=== PATIENT | female | born 1950 | race Asian ===

== ENCOUNTER → 2019-03-31 | Outpatient (CLI) | payer OTHER ==
[~2019-03-31] MED LIST: ALBU90OI INH; Amlodipine Besy10 MG PO; CALCAVITD PO; CIPR500 PO; FLONASE ALLERG9.9 ML; Glucophage1000 MG PO; HTN MEDS; HYDCHL25 PO; LISI20 PO; LOSA50 PO; METF500 PO; Multiple Vitam1 EAC1 PO; NITR100CA PO; PHENA200 PO; POTA10T PO; VITAMIN D3400 UNIT PO; [UNRECOGNIZED DRUG - REMARK]
[2019-04-01 14:20] LABS: Stool Occult Bld Immuno 1 Negative (NEGATIVE)
== END ==
LOC: LAB 13:50 → LAB SHORT 13:50
PROVIDERS: Nurse Practitioner Family
DX: Z12.11 Encounter for screening for malignant neoplasm of colon (principal)
CPT/HCPCS: 82274

== ENCOUNTER 2020-02-05 02:16 | Observation (INO) | payer OTHER ==
[~2020-02-05] VITALS: Ht 142.2 cm; Wt 69.0 kg
[2020-02-05] MEDS ORDERED: GLUCOPHAGE1000 MG PO (02:39)
[2020-02-05 02:50] LABS: BASOPHILS ABSOLUTE AUTO 0.03 K/mm3 (0.00-0.23); BASOPHILS PERCENT AUTO 1 % (0-2); EOSINOPHILS ABSOLUTE AUTO 0.09 K/mm3 (0.00-0.68); EOSINOPHILS PERCENT AUTO 2 % (0-6); Hematocrit 37.4 % (33.0-51.0); Hemoglobin 12.3 g/dL (11.5-16.0); IMMATURE GRAN ABSOLUTE AUTO 0.01 K/mm3 (0.00-0.10); IMMATURE GRAN PERCENT AUTO 0 % (0-1); LYMPHOCYTES ABSOLUTE AUTO 1.61 K/mm3 (0.84-5.20); LYMPHOCYTES PERCENT AUTO 29 % (21-46); MONOCYTES ABSOLUTE AUTO 0.66 K/mm3 (0.16-1.47); MONOCYTES PERCENT AUTO 12 % (4-13); Mean Corpuscular HGB Conc 32.9 g/dL (31.5-36.5); Mean Corpuscular Volume 94 fL (80-100); Mean Platelet Volume 9.9 fL (9.1-12.4); NEUTROPHILS ABSOLUTE AUTO 3.25 K/mm3 (1.96-9.15); NEUTROPHILS PERCENT AUTO 58 % (41-73); Platelet Count 159 K/mm3 (150-400); RDW Coefficient Variation 13.2 % (11.7-14.2); RDW Standard Deviation 45.5 fL (35.1-46.3); Red Blood Cell Count 3.97 M/mm3 (3.80-5.20); White Blood Cell Count 5.65 K/mm3 (4.00-11.30)
[2020-02-05 03:11] LABS: Alanine Aminotransfer (ALT/SGP 29 U/L (12-78); Albumin, Blood 3.6 g/dL (3.4-5.0); Albumin/Globulin Ratio 0.9 (0.8-1.8); Alk Phos 86 U/L (50-136); Anion Gap 12 mmol/L (6-16); Aspartate Aminotrans (AST/SGOT 29 U/L (12-37); Bilirubin, Total 0.5 mg/dL (0.1-1.0); Blood Urea Nitrogen 11 mg/dL (8-24); Bun/Creatinine Ratio 13.1 (12.0-20.0); CO2, Blood 25 mmol/L (21-32); Calcium, Blood 9.1 mg/dL (8.5-10.1); Chloride, Blood 103 mmol/L (98-108); Creatinine, Blood 0.84 mg/dL (0.40-1.00); Globulin, Blood 4.2 g/dL (2.2-4.0); Glomerular Filtration Rate >60 (60-); Glucose, Blood 199 mg/dL (70-99); Potassium, Blood 2.9 mmol/L (3.5-5.5); Sodium, Blood 140 mmol/L (136-145); Total Protein, Blood 7.8 g/dL (6.4-8.2)
--- NOTE | 2020-02-05 06:48 | NUR ---
SHIFT SUMMARY PT ARRIVED APPROXIMATELY 0545; PT SELF TRANSFERED TO BED; A&O X 4; VSS; NSR NOTED ON TELE W/HR 80; DENIES CHEST PAIN; DENIES SOB; O2 SATS >93 ON RA; LUNG SOUNDS CLEAR; PT STATES SHE FELL DOWN A HILL AT HOME SEVERAL DAYS AGO, SEVERAL BRUISES NOTED ON LOWER EXTREMITIES AND LG SCAB ON L ELBOW; POTASSIUM GTT IN 18G RAC; PT STATES SHE TAKES METFORMIN TO CONTROL DM2; PT EDUCATED ON SAFETY AND ORIENTED TO UNIT; PT EXPRESSES UNDERSTANDING; CALL LIGHT IN REACH; BED IN LOWEST POSITION; WILL MONITOR CLOSELY UNTIL HAND OFF TO DAY SHIFT RN.
--- NOTE | 2020-02-05 08:02 | NUR ---
PT LAYING IN BED AWAKE A/OX3, PLEASANT AND COOPERATIVE WITH CARE, FOLLOWS COMMANDS, DENIES PAIN, SOB OR DIZZINESS, LUNGS ARE CLEAR T/O, RESP EVEN AND UNLABORED, NO COUGH NOTED, HRR, TELE IN PLACE RUNNING SR IN THE 70'S PER MONTIOR, SEE STRIP, NO EDEMA NOTED, PPP+2, CAP REFILL <3SEC, VS STABLE, AFEBRILE, IV TO RAC, SITE IS CLEAR AND PATENT, BTX4, ABD FLAT SOFT NONTENDER, VOIDS WITHOUT DIFF, SKIN C/W/D, MAEW, UP INDEP, HATTIE, CALL LIGHT IN REACH.
[2020-02-05 11:39] LABS: Troponin I 0.046 ng/mL (0.000-0.040)
--- NOTE | 2020-02-05 12:15 | NUR ---
PT SITTING ON THE SIDE OF THE BED EATING LUNCH, FAMILY IN ROOM WITH HER. NO COMPLAINTS OR NEEDS AT THIS TIME. CALL LIGHT IN REACH.
[2020-02-05] MEDS ORDERED: XARELTO20 MG PO (15:24)
[2020-02-05] MEDS ORDERED: METO25 PO (15:24)
[2020-02-05 16:24] LABS: Anion Gap 8 mmol/L (6-16); Blood Urea Nitrogen 9 mg/dL (8-24); Bun/Creatinine Ratio 14.2 (12.0-20.0); CO2, Blood 28 mmol/L (21-32); Calcium, Blood 9.4 mg/dL (8.5-10.1); Chloride, Blood 105 mmol/L (98-108); Creatinine, Blood 0.64 mg/dL (0.40-1.00); Glomerular Filtration Rate >60 (60-); Glucose, Blood 117 mg/dL (70-99); Potassium, Blood 3.3 mmol/L (3.5-5.5); Sodium, Blood 141 mmol/L (136-145)
--- NOTE | 2020-02-05 18:37 | NUR ---
PT HAS BEEN DISCHARGED TO HOME, WENT OVER INSTRUCTIONS WITH HER, HER MEDS WERE CALLED INTO [facility], IV REMOVED INTACT, SHE IS GETTING DRESSED, WILL LEAVE VIA WHEELCHAIR WITH SLEEP TECHNICIAN AND FAMILY WITH ALL HER BELONGINGS.
== END 2020-02-05 18:37 | disposition home or self-care (01) ==
LOC: ER 02:16 → PCU 02:17
PROVIDERS: Emergency Medicine; Hospitalist; ADMIT Internal Medicine
DX: I48.0 Paroxysmal atrial fibrillation (principal); R42 Dizziness and giddiness; E11.65 Type 2 diabetes mellitus with hyperglycemia; E66.9 Obesity, unspecified; I10 Essential (primary) hypertension; E87.6 Hypokalemia; I34.0 Nonrheumatic mitral (valve) insufficiency; Z79.899 Other long term (current) drug therapy; Z88.8 Allergy status to other drugs, medicaments and biological substances; Z79.84 Long term (current) use of oral hypoglycemic drugs; I48.92 Unspecified atrial flutter; Z68.34 Body mass index [BMI] 34.0-34.9, adult
CPT/HCPCS: 36415; 71045; 80048; 80053; 82550; 82947; 83735; 83880; 84484; 85025; 93005; 93010; 93306; 96365; 96366; 96367; 96375; 99285-25; A9270-GY; G0378; J3475; J3480; J7030

== ENCOUNTER 2020-04-08 13:16 | Observation (INO) | payer OTHER ==
[~2020-04-08] VITALS: Ht 142.2 cm; Wt 68.0 kg
[~2020-04-08 13:16] MED LIST changes: -CALCAVITD PO; +GLUCOPHAGE1000 MG PO; +METO25 PO; +OYSTERCAL-D 501 EACH PO; +XARELTO20 MG PO
[2020-04-08 14:03] LABS: BASOPHILS ABSOLUTE AUTO 0.03 K/mm3 (0.00-0.23); BASOPHILS PERCENT AUTO 1 % (0-2); EOSINOPHILS PERCENT AUTO 2 % (0-6); Hematocrit 40.7 % (33.0-51.0); Hemoglobin 13.6 g/dL (11.5-16.0); IMMATURE GRAN ABSOLUTE AUTO 0.01 K/mm3 (0.00-0.10); IMMATURE GRAN PERCENT AUTO 0 % (0-1); LYMPHOCYTES ABSOLUTE AUTO 1.36 K/mm3 (0.84-5.20); LYMPHOCYTES PERCENT AUTO 24 % (21-46); MONOCYTES ABSOLUTE AUTO 0.54 K/mm3 (0.16-1.47); MONOCYTES PERCENT AUTO 10 % (4-13); Mean Corpuscular HGB 30.2 pg (26.0-34.0); Mean Corpuscular HGB Conc 33.4 g/dL (31.5-36.5); Mean Corpuscular Volume 90 fL (80-100); Mean Platelet Volume 10.4 fL (9.1-12.4); NEUTROPHILS PERCENT AUTO 64 % (41-73); Platelet Count 148 K/mm3 (150-400); RDW Coefficient Variation 12.7 % (11.7-14.2); RDW Standard Deviation 41.7 fL (35.1-46.3); Red Blood Cell Count 4.51 M/mm3 (3.80-5.20); White Blood Cell Count 5.64 K/mm3 (4.00-11.30)
[2020-04-08] MEDS ORDERED: DILT180 PO (14:16)
[2020-04-08 14:25] LABS: Alanine Aminotransfer (ALT/SGP 37 U/L (12-78); Albumin, Blood 3.8 g/dL (3.4-5.0); Albumin/Globulin Ratio 0.9 (0.8-1.8); Alk Phos 98 U/L (50-136); Anion Gap 6 mmol/L (6-16); Aspartate Aminotrans (AST/SGOT 35 U/L (12-37); Bilirubin, Total 0.8 mg/dL (0.1-1.0); Blood Urea Nitrogen 14 mg/dL (8-24); Bun/Creatinine Ratio 19.3 (12.0-20.0); CO2, Blood 27 mmol/L (21-32); Calcium, Blood 9.8 mg/dL (8.5-10.1); Chloride, Blood 106 mmol/L (98-108); Creatinine, Blood 0.73 mg/dL (0.40-1.00); Globulin, Blood 4.4 g/dL (2.2-4.0); Glomerular Filtration Rate >60 (60-); Glucose, Blood 187 mg/dL (70-99); Potassium, Blood 3.5 mmol/L (3.5-5.5); Sodium, Blood 139 mmol/L (136-145); Total Protein, Blood 8.2 g/dL (6.4-8.2); Troponin I 0.059 ng/mL (0.000-0.040)
--- NOTE | 2020-04-08 17:40 | NUR ---
SHIFT SUMMARY PT ALERT AND ORIENTED. VS STABLE. HR NSR IN THE 70'S. BP STABLE. O2 SATS REMAIN ABOVE 90% ON RA. PT DENIES ANY DIZZINESS OR CP/PRESSURE. PT ABLE TO AMBUALTE TO BATHROOM WITH SBA NEEDED TO VOID. PT ORIENTED TO ROOM. SISTER AT BEDSIDE. WILL CONTINUE TO MONITOR AND REPORT TO ONCOMING RN. CALL LIGHT IN REACH.
[2020-04-09 03:36] LABS: BASOPHILS ABSOLUTE AUTO 0.03 K/mm3 (0.00-0.23); BASOPHILS PERCENT AUTO 1 % (0-2); EOSINOPHILS PERCENT AUTO 2 % (0-6); Hematocrit 36.2 % (33.0-51.0); Hemoglobin 11.8 g/dL (11.5-16.0); IMMATURE GRAN ABSOLUTE AUTO 0.01 K/mm3 (0.00-0.10); IMMATURE GRAN PERCENT AUTO 0 % (0-1); LYMPHOCYTES ABSOLUTE AUTO 1.28 K/mm3 (0.84-5.20); LYMPHOCYTES PERCENT AUTO 28 % (21-46); MONOCYTES ABSOLUTE AUTO 0.48 K/mm3 (0.16-1.47); MONOCYTES PERCENT AUTO 11 % (4-13); Mean Corpuscular HGB 29.8 pg (26.0-34.0); Mean Corpuscular HGB Conc 32.6 g/dL (31.5-36.5); Mean Corpuscular Volume 91 fL (80-100); Mean Platelet Volume 10.7 fL (9.1-12.4); NEUTROPHILS PERCENT AUTO 58 % (41-73); Platelet Count 130 K/mm3 (150-400); RDW Coefficient Variation 12.5 % (11.7-14.2); RDW Standard Deviation 41.9 fL (35.1-46.3); Red Blood Cell Count 3.96 M/mm3 (3.80-5.20)
[2020-04-09 03:54] LABS: Anion Gap 6 mmol/L (6-16); Blood Urea Nitrogen 12 mg/dL (8-24); Bun/Creatinine Ratio 16.9 (12.0-20.0); CO2, Blood 27 mmol/L (21-32); Calcium, Blood 9.2 mg/dL (8.5-10.1); Chloride, Blood 109 mmol/L (98-108); Creatinine, Blood 0.71 mg/dL (0.40-1.00); Glomerular Filtration Rate >60 (60-); Glucose, Blood 112 mg/dL (70-99); Potassium, Blood 3.6 mmol/L (3.5-5.5); Sodium, Blood 142 mmol/L (136-145); Troponin I 0.061 ng/mL (0.000-0.040)
--- NOTE | 2020-04-09 06:18 | NUR ---
END OF SHIFT SUMMARY PT AXO. PLEASANT AND COOPERATIVE. BEGINNING OF SHIFT, PT IN SR 60'S, PT THEN CONVERTED TO AFIB, HR 40'S AND STATED FEELING "TUNNEL VISION, DIZZY, LIGHTHEADED". PT SHORTLY CONVERTED TO SR W/OUT INTERVENTION, OTHER VSS DURING THIS EVENT. PT THEN CONTINUED TO CONVERT BACK AND FORTH INTO AFIB HR 30'S TO 40'S WITH 3-4 SECOND PAUSES TO SR HR 60'S TO 70'S. BP STABLE T/O. ZOLL PLACED AT BEDSIDE AND PADS PLACED ON PT ANTERIOR/POSTERIOR IN CASE OF SEVERE EVENT. VERITO Zaldivar NOTIFIED, ORDERS RECEIVED TO HAVE IV ATROPINE AT BEDSIDE IN CASE OF SEVERE EVNT .SINCE ZOLL WAS PLACED IN ROOM AND ATROPINE AT BEDSIDE, PT'S BRADYCARDIC EVENTS HAVE DECREASED SIGNIFICANTLY. TROPONIN HAS NOT TRENDED UP/DOWN. PT HAS DENIED CP THIS SHIFT. REMAINS ON RA. PT EXPRESSES WORRY REGARDING HEART CONDITION BUT HAS BEEN ABLE TO SLEEP THIS SHIFT. WILL CONTINUE TO MONITOR UNTIL SHIFT CHANGE.
--- NOTE | 2020-04-09 07:00 | NUR ---
XARELTO PHARMACIST KAMRYN CONTACTED THIS RN REGARDING XARELTO DOSAGE AT 0600 AND 2100. PHARMACIST AND RN QUESTIONING THIS DOSAGE OF 20MGS BID. KAMRYN PHARMACIST TO CLARIFT WITH ONCOMING PHARMACIST WHO VERIFIED ORDER AND WILL ADJUST NEEDED FOR DAY SHIFT RN.
--- NOTE | 2020-04-09 07:30 | NUR ---
ASSUMED CARE: PT RESTING QUIETLY AT THIS TIME. NSR ON TELE. ZOLL AT BEDSIDE BUT HAS NOT BEEN NEEDED. NO ACUTE NEEDS AT THIS TIME.
--- NOTE | 2020-04-09 18:55 | NUR ---
SHIFT SUMMARY: CARDIAC MEDS HELD TODAY PER ORDERS. NO CARDIAC EVENTS NOTED. PT ALERT AND ORIENTED, COOPERATIVE AND DENIES NEEDS OR CONCERNS. NSR ON TELE AT THIS TIME IN 60S
--- NOTE | 2020-04-10 06:04 | NUR ---
SHIFT SUMMARY PT HAD UNEVENTFUL NIGHT AND SLEPT MOST OF THE SHIFT. HEART MONITOR SHOWED NORMAL SINUS RHYTHM, NO EPISODES OF A-FIB OR PAUSES. HR IN THE 60-70'S AND BP HYPERTENSIVE AROUND 160 SYSTOLIC FALLING TO 130 IN THE AM. PT STATED HAVING NO SYMPTOMS OR DIZZINESS WHEN IN BED OR WHEN UP TO THE TOILET. PACER PADS ON PT T/O SHIFT WITH ZOLL AND ATROPINE STILL IN THE ROOM. PT STABLE AND UNREMARKABLE DURING SHIFT. WILL CONTINUE TO MONITOR UNTIL SHIFT CHANGE.
--- NOTE | 2020-04-10 07:30 | NUR ---
ASSUMED CARE: PT RESTING QUIETLY AT THIS TIME. HR NSR IN 60S AT PRESENT. NO ACUTE NEEDS OR CONCERNS.
--- NOTE | 2020-04-10 15:00 | NUR ---
CALL TO DR RIDER. OK'D PT FOR DC DUE TO HR IN 60S-70S WITH NO EVENTS THIS SHIFT. INSTRUCTIONS GIVE TO PT AND SISTER REGARDING F/U APPOINTMENTS AND MEDICATION MANAGEMENT. PRESCRIPTION CALLED TO NOEMÍ. DENIES FURTHER NEEDS OR CONCERNS. ESCORTED OUT VIA WHEELCHAIR BY HOSPTIAL STAFF.
== END 2020-04-10 14:50 | disposition home or self-care (01) ==
LOC: ER 13:16 → PCU 13:17
PROVIDERS: Physician Assistant; Student in an Organized Health Care Education/Training Program; ADMIT Hospitalist
DX: I48.0 Paroxysmal atrial fibrillation (principal); E11.9 Type 2 diabetes mellitus without complications; E66.9 Obesity, unspecified; R42 Dizziness and giddiness; I10 Essential (primary) hypertension; D69.6 Thrombocytopenia, unspecified; Z79.899 Other long term (current) drug therapy; R77.8 Other specified abnormalities of plasma proteins; Z88.8 Allergy status to other drugs, medicaments and biological substances; Z79.84 Long term (current) use of oral hypoglycemic drugs; Z79.02 Long term (current) use of antithrombotics/antiplatelets; Z79.01 Long term (current) use of anticoagulants; Z68.33 Body mass index [BMI] 33.0-33.9, adult
CPT/HCPCS: 36415; 71046; 80048; 80053; 82947; 84443; 84484; 85025; 93005; 93010; 99285-25; A9270-GY; G0378; J1815

== ENCOUNTER 2020-06-13 20:36 | Observation (INO) | payer OTHER ==
[~2020-06-13] VITALS: Ht 142.2 cm; Wt 65.9 kg
[~2020-06-13 20:36] MED LIST changes: +DILT180 PO
[2020-06-13 21:34] LABS: BASOPHILS ABSOLUTE AUTO 0.03 K/mm3 (0.00-0.23); BASOPHILS PERCENT AUTO 1 % (0-2); EOSINOPHILS PERCENT AUTO 2 % (0-6); Hematocrit 40.4 % (33.0-51.0); Hemoglobin 12.7 g/dL (11.5-16.0); IMMATURE GRAN ABSOLUTE AUTO 0.01 K/mm3 (0.00-0.10); IMMATURE GRAN PERCENT AUTO 0 % (0-1); LYMPHOCYTES ABSOLUTE AUTO 1.33 K/mm3 (0.84-5.20); LYMPHOCYTES PERCENT AUTO 23 % (21-46); MONOCYTES ABSOLUTE AUTO 0.63 K/mm3 (0.16-1.47); MONOCYTES PERCENT AUTO 11 % (4-13); Mean Corpuscular HGB 29.1 pg (26.0-34.0); Mean Corpuscular HGB Conc 31.4 g/dL (31.5-36.5); Mean Corpuscular Volume 92 fL (80-100); Mean Platelet Volume 10.9 fL (9.1-12.4); NEUTROPHILS PERCENT AUTO 64 % (41-73); Platelet Count 160 K/mm3 (150-400); RDW Coefficient Variation 12.9 % (11.7-14.2); RDW Standard Deviation 43.8 fL (35.1-46.3); Red Blood Cell Count 4.37 M/mm3 (3.80-5.20)
[2020-06-13] MEDS ORDERED: METOPROLOL TART25 MG PO (21:40)
[2020-06-13] MEDS ORDERED: HYDR10 PO (21:41)
[2020-06-13] MEDS ORDERED: ZOLOFT50 MG PO (21:42)
[2020-06-13 21:54] LABS: Alanine Aminotransfer (ALT/SGP 20 U/L (12-78); Albumin, Blood 3.4 g/dL (3.4-5.0); Albumin/Globulin Ratio 0.8 (0.8-1.8); Alk Phos 96 U/L (50-136); Anion Gap 4 mmol/L (6-16); Aspartate Aminotrans (AST/SGOT 23 U/L (12-37); Bilirubin, Total 0.5 mg/dL (0.1-1.0); Blood Urea Nitrogen 10 mg/dL (8-24); Bun/Creatinine Ratio 13.8 (12.0-20.0); CO2, Blood 29 mmol/L (21-32); Calcium, Blood 9.2 mg/dL (8.5-10.1); Chloride, Blood 108 mmol/L (98-108); Creatinine, Blood 0.72 mg/dL (0.40-1.00); Globulin, Blood 4.2 g/dL (2.2-4.0); Glomerular Filtration Rate >60 (60-); Glucose, Blood 167 mg/dL (70-99); Sodium, Blood 141 mmol/L (136-145); Total Protein, Blood 7.6 g/dL (6.4-8.2)
--- NOTE | 2020-06-14 05:10 | NUR ---
SHIFT SUMMARY ALLEN WAS ADMITTED TO PCU AT 0125 THIS AM. SHE IS ALERT AND ORIENTED X4. ON ROOM AIR. UPON ARRIVAL SHE COMPLAINED OF HEADACHE, MEDICATED VIA EMAR AND GIVEN ICE PACK FOR RELIEF. IV IN R FOREARM SALINE LOCKED. ON TELE WITH - SINUS RHYTHM WITH HR IN THE 70-80's. BED ALARM ON DUE TO MEDICATING WITH PAIN MEDS, AMBULATING TO THE BATHROOM. VERY PLEASENT, RESTING MOST OF THE NIGHT. WILL CONTINUE TO MONITOR.
[2020-06-14 05:26] LABS: BASOPHILS ABSOLUTE AUTO 0.02 K/mm3 (0.00-0.23); BASOPHILS PERCENT AUTO 0 % (0-2); EOSINOPHILS ABSOLUTE AUTO 0.06 K/mm3 (0.00-0.68); EOSINOPHILS PERCENT AUTO 1 % (0-6); Hemoglobin 11.2 g/dL (11.5-16.0); IMMATURE GRAN ABSOLUTE AUTO 0.01 K/mm3 (0.00-0.10); IMMATURE GRAN PERCENT AUTO 0 % (0-1); LYMPHOCYTES ABSOLUTE AUTO 1.32 K/mm3 (0.84-5.20); LYMPHOCYTES PERCENT AUTO 27 % (21-46); MONOCYTES ABSOLUTE AUTO 0.49 K/mm3 (0.16-1.47); MONOCYTES PERCENT AUTO 10 % (4-13); Mean Corpuscular HGB 29.5 pg (26.0-34.0); Mean Corpuscular Volume 92 fL (80-100); NEUTROPHILS ABSOLUTE AUTO 3.04 K/mm3 (1.96-9.15); NEUTROPHILS PERCENT AUTO 62 % (41-73); Platelet Count 116 K/mm3 (150-400); RDW Coefficient Variation 12.9 % (11.7-14.2); RDW Standard Deviation 43.6 fL (35.1-46.3); White Blood Cell Count 4.94 K/mm3 (4.00-11.30)
[2020-06-14 05:47] LABS: Alanine Aminotransfer (ALT/SGP 16 U/L (12-78); Albumin/Globulin Ratio 0.9 (0.8-1.8); Alk Phos 80 U/L (50-136); Anion Gap 3 mmol/L (6-16); Aspartate Aminotrans (AST/SGOT 18 U/L (12-37); Bilirubin, Total 0.6 mg/dL (0.1-1.0); Blood Urea Nitrogen 9 mg/dL (8-24); Bun/Creatinine Ratio 13.3 (12.0-20.0); CO2, Blood 28 mmol/L (21-32); CPK Creatine Kinase 49 U/L (26-193); Calcium, Blood 8.8 mg/dL (8.5-10.1); Chloride, Blood 112 mmol/L (98-108); Creatinine, Blood 0.68 mg/dL (0.40-1.00); Globulin, Blood 3.4 g/dL (2.2-4.0); Glomerular Filtration Rate >60 (60-); Glucose, Blood 105 mg/dL (70-99); Potassium, Blood 3.8 mmol/L (3.5-5.5); Sodium, Blood 143 mmol/L (136-145); Total Protein, Blood 6.4 g/dL (6.4-8.2); Troponin I 0.092 ng/mL (0.000-0.040)
--- NOTE | 2020-06-14 07:30 | NUR ---
ASSUMED PATIENT CARE. PATIENT RESTING COMFORTABLY IN BED, CONVERSING WITH NURSING STAFF. NO SIGNS OF ACUTE DISTRESS, WCTM.
[2020-06-14 14:08] LABS: Troponin I 0.082 ng/mL (0.000-0.040)
--- NOTE | 2020-06-14 17:32 | NUR ---
NO ACUTE EVENTS THIS SHIFT. PATIENT'S BP REMAINED ELEVATED THIS SHIFT, HIGH OF 192/82, PATIENT COMPLAINED OF HEADACHE WITH PULSATING PAIN IN [place]. DR. CRUZ NOTIFIED, EXCEDRIN ORDERED AND PATIENT STATED COMPLETE RELIEF OF HEADACHE. BLOOD PRESSURE MEDS TITRATED THIS SHIFT. PATIENT IS ALERT AND ORIENTED, INDEPENDENT IN ROOM. PATIENT DENIED CHEST PAIN/PRESSURE THIS SHIFT. .
--- NOTE | 2020-06-15 05:33 | NUR ---
SHIFT SUMMARY PT A&O X 4; PLEASANT & COMPLIANT W/ CARE; VSS; BP CONTINUES TO IMPROVE; DENIES CHEST PAIN; SINUS AMRITA NOTED ON TELE W/ HR 58; O2 SATS >93 ON RA; DENIED 2100 ZOLOFT; PT SEEMED APPREHENSIVE REGARDING NEW MEDICATIONS THAT WERE ADDED TO EMAR; PRINTED MEDICATION MATERIAL GIVEN TO PT TO FURTHER EDUCATE; PT SLEPT ON AND OFF T/O SHIFT; PT INDEPENDENT IN ROOM; CALL LIGHT IN REACH; BED IN LOWEST POSITION; WILL CONTINUE TO MONITOR CLOSELY UNTIL HAND OFF TO DAY SHIFT RN.
[2020-06-15] MEDS ORDERED: AMLO5 PO (16:14)
[2020-06-15] MEDS ORDERED: HYDCHL25 PO (16:16)
[2020-06-15] MEDS ORDERED: PROP80ER PO (16:17)
--- NOTE | 2020-06-15 17:34 | NUR ---
PATIENT PROVIDED DISCHARGE INFO REGARDING FOLLOW UP PLANS, REASONS TO RETURN TO THE HOSPITAL, AND MEDICATION INFORMATION. PATIENT VERBALIZED UNDERSTANDING. PATIENT DEMONSTRATED UNDERSTANDING AND ABILITY TO CHECK OWN BLOOD PRESSURE WITH WRIST CUFF SENT HOME WITH PATIENT. NO SIGNS OF ACUTE DISTRESS.
== END 2020-06-15 17:30 | disposition home or self-care (01) ==
LOC: ER 20:36 → PCU 20:37
PROVIDERS: Physician Assistant; ADMIT Internal Medicine
DX: I16.1 Hypertensive emergency (principal); R77.8 Other specified abnormalities of plasma proteins; I10 Essential (primary) hypertension; E11.9 Type 2 diabetes mellitus without complications; G89.29 Other chronic pain; I48.20 Chronic atrial fibrillation, unspecified; G43.909 Migraine, unspecified, not intractable, without status migrainosus; E66.9 Obesity, unspecified; Z68.32 Body mass index [BMI] 32.0-32.9, adult; Z79.01 Long term (current) use of anticoagulants; Z79.84 Long term (current) use of oral hypoglycemic drugs; Z79.899 Other long term (current) drug therapy; Z88.8 Allergy status to other drugs, medicaments and biological substances; Z23 Encounter for immunization
CPT/HCPCS: 36415; 70450; 71046; 80053; 82550; 82947; 83880; 84484; 85025; 93005; 93010; 96374; 99285-25; A9270; A9270-GY; J3010

== ENCOUNTER → 2021-01-26 | Outpatient (CLI) | payer OTHER ==
[~2021-01-26] MED LIST changes: +AMLO5 PO; +HYDR10 PO; +METOPROLOL TART25 MG PO; +PROP80ER PO; +ZOLOFT50 MG PO
[2021-01-26 07:40] LABS: Source, Urine Clean Catch
[2021-01-26 10:44] LABS: Appearance, Urine Hazy (Clear); Bilirubin, Urine Neg (Neg); Blood, Urine 3+ (Neg); Color, Urine Yellow (P-Yellow); Glucose Qualitative, Urine Neg (Neg); Ketones, Urine Neg (Neg); Leukocyte Esterase, Urine 3+ (Neg); Nitrite, Urine Neg (Neg); Protein, Urine Neg (Neg); Urobilinogen, Urine NORM (Normal)
[2021-01-26 13:22] LABS: Bacteria Many /hpf; Squamous Epithelial Cells Mod /hpf (Few); White Blood Cells, Urine 50-100 /hpf (0-5)
== END | disposition home or self-care (01) ==
LOC: LAB 07:39 → LAB SHORT 07:39
PROVIDERS: Physician Assistant
DX: R30.0 Dysuria (principal)
CPT/HCPCS: 81001; 87077; 87086; 87186

== ENCOUNTER 2022-05-16 12:09 | Emergency (ER) | payer OTHER ==
[~2022-05-16] VITALS: Ht 142.2 cm; Wt 64.4 kg
[~2022-05-16 12:09] MED LIST changes: +CALCIUM 500 MG1 EAC2 PO; +VALS80 PO
[2022-05-16 13:47] LABS: BASOPHILS ABSOLUTE AUTO 0.04 K/mm3 (0.00-0.23); BASOPHILS PERCENT AUTO 1 % (0-2); EOSINOPHILS ABSOLUTE AUTO 0.05 K/mm3 (0.00-0.68); EOSINOPHILS PERCENT AUTO 1 % (0-6); Hematocrit 36.6 % (33.0-51.0); Hemoglobin 12.4 g/dL (11.5-16.0); IMMATURE GRAN ABSOLUTE AUTO 0.02 K/mm3 (0.00-0.10); IMMATURE GRAN PERCENT AUTO 0 % (0-1); LYMPHOCYTES ABSOLUTE AUTO 1.36 K/mm3 (0.84-5.20); LYMPHOCYTES PERCENT AUTO 24 % (21-46); MONOCYTES ABSOLUTE AUTO 0.48 K/mm3 (0.16-1.47); MONOCYTES PERCENT AUTO 9 % (4-13); Mean Corpuscular HGB 30.5 pg (26.0-34.0); Mean Corpuscular HGB Conc 33.9 g/dL (31.5-36.5); Mean Corpuscular Volume 90 fL (80-100); Mean Platelet Volume 9.9 fL (9.1-12.4); NEUTROPHILS ABSOLUTE AUTO 3.62 K/mm3 (1.96-9.15); NEUTROPHILS PERCENT AUTO 65 % (41-73); Platelet Count 158 K/mm3 (150-400); RDW Coefficient Variation 12.8 % (11.7-14.2); RDW Standard Deviation 42.5 fL (35.1-46.3); Red Blood Cell Count 4.06 M/mm3 (3.80-5.20); White Blood Cell Count 5.57 K/mm3 (4.00-11.30)
[2022-05-16 14:06] LABS: Albumin, Blood 3.4 g/dL (3.4-5.0); Albumin/Globulin Ratio 0.8 (0.8-1.8); Bilirubin, Total 0.8 mg/dL (0.1-1.0); Bun/Creatinine Ratio 19.1 (12.0-20.0); Calcium, Blood 9.8 mg/dL (8.5-10.1); Creatinine, Blood 1.15 mg/dL (0.40-1.00); Potassium, Blood 4.1 mmol/L (3.5-5.5); Total Protein, Blood 7.4 g/dL (6.4-8.2)
[2022-05-16 14:13] LABS: Influenza A, PCR NEGATIVE (NEGATIVE); Influenza B, PCR NEGATIVE (NEGATIVE); Resp Syncytial Virus, PCR NEGATIVE (NEGATIVE); SARS-Cov-2 (COVID-19) PCR, MMC NEGATIVE (NEGATIVE)
== END 2022-05-16 15:25 | disposition home or self-care (01) ==
LOC: ER 12:09
PROVIDERS: Emergency Medicine
DX: R06.02 Shortness of breath (principal); I48.0 Paroxysmal atrial fibrillation; E11.9 Type 2 diabetes mellitus without complications; I10 Essential (primary) hypertension; Z20.822 Contact with and (suspected) exposure to COVID-19
CPT/HCPCS: 0241U; 36415; 71046; 80053; 83880; 84484; 85025; 93005; 93010

== ENCOUNTER → 2022-06-19 | Outpatient (CLI) | payer OTHER ==
[2022-06-22 10:20] LABS: Stool Occult Bld Immuno 1 Negative (NEGATIVE)
== END ==
LOC: LAB SHORT 08:10
PROVIDERS: Nurse Practitioner Family
DX: Z12.11 Encounter for screening for malignant neoplasm of colon (principal)
CPT/HCPCS: G0328

== ENCOUNTER 2023-01-04 10:23 | Emergency (ER) | payer OTHER ==
[~2023-01-04] VITALS: Ht 142.2 cm; Wt 65.8 kg
[2023-01-04 11:02] LABS: BASOPHILS ABSOLUTE AUTO 0.04 K/mm3 (0.00-0.23); BASOPHILS PERCENT AUTO 1 % (0-2); EOSINOPHILS ABSOLUTE AUTO 0.08 K/mm3 (0.00-0.68); EOSINOPHILS PERCENT AUTO 2 % (0-6); Hematocrit 37.9 % (33.0-51.0); Hemoglobin 13.1 g/dL (11.5-16.0); IMMATURE GRAN ABSOLUTE AUTO 0.01 K/mm3 (0.00-0.10); IMMATURE GRAN PERCENT AUTO 0 % (0-1); LYMPHOCYTES ABSOLUTE AUTO 1.22 K/mm3 (0.84-5.20); LYMPHOCYTES PERCENT AUTO 26 % (21-46); MONOCYTES ABSOLUTE AUTO 0.38 K/mm3 (0.16-1.47); MONOCYTES PERCENT AUTO 8 % (4-13); Mean Corpuscular HGB Conc 34.6 g/dL (31.5-36.5); Mean Corpuscular Volume 87 fL (80-100); Mean Platelet Volume 10.1 fL (9.1-12.4); NEUTROPHILS ABSOLUTE AUTO 3.06 K/mm3 (1.96-9.15); NEUTROPHILS PERCENT AUTO 64 % (41-73); Platelet Count 169 K/mm3 (150-400); RDW Coefficient Variation 12.5 % (11.7-14.2); RDW Standard Deviation 39.8 fL (35.1-46.3); Red Blood Cell Count 4.37 M/mm3 (3.80-5.20); White Blood Cell Count 4.79 K/mm3 (4.00-11.30)
[2023-01-04] MEDS ORDERED: AMLODIPINE BESY10 MG PO (11:02)
[2023-01-04] MEDS ORDERED: HYDCHL25 PO (11:03)
[2023-01-04 11:32] LABS: Albumin, Blood 3.9 g/dL (3.4-5.0); Albumin/Globulin Ratio 0.9 (0.8-1.8); Bilirubin, Total 0.6 mg/dL (0.1-1.0); Bun/Creatinine Ratio 16.1 (12.0-20.0); Calcium, Blood 9.7 mg/dL (8.5-10.1); Creatinine, Blood 0.87 mg/dL (0.40-1.00); Globulin, Blood 4.2 g/dL (2.2-4.0); Potassium, Blood 3.3 mmol/L (3.5-5.5); Total Protein, Blood 8.1 g/dL (6.4-8.2)
[2023-01-04 14:00] VITALS: BP 130/63
== END 2023-01-04 14:53 | disposition home or self-care (01) ==
LOC: ER 10:23
PROVIDERS: Physician Assistant
DX: R07.9 Chest pain, unspecified (principal); I10 Essential (primary) hypertension; E11.9 Type 2 diabetes mellitus without complications; I48.91 Unspecified atrial fibrillation; Z88.8 Allergy status to other drugs, medicaments and biological substances; Z79.01 Long term (current) use of anticoagulants; Z79.84 Long term (current) use of oral hypoglycemic drugs; Z79.899 Other long term (current) drug therapy
CPT/HCPCS: 71046; 80053; 83880; 84484; 85025; 93005; 93010; 93242; 99284-25

== ENCOUNTER 2023-02-20 12:15 | Inpatient (IN) | payer OTHER ==
[~2023-02-20] VITALS: Ht 142.2 cm; Wt 64.5 kg
[~2023-02-20 12:15] MED LIST changes: +AMLODIPINE BESY10 MG PO
[2023-02-20 12:56] LABS: BASOPHILS ABSOLUTE AUTO 0.05 K/mm3 (0.00-0.23); BASOPHILS PERCENT AUTO 1 % (0-2); EOSINOPHILS ABSOLUTE AUTO 0.11 K/mm3 (0.00-0.68); EOSINOPHILS PERCENT AUTO 2 % (0-6); Hematocrit 39.7 % (33.0-51.0); Hemoglobin 13.2 g/dL (11.5-16.0); IMMATURE GRAN ABSOLUTE AUTO 0.02 K/mm3 (0.00-0.10); IMMATURE GRAN PERCENT AUTO 0 % (0-1); LYMPHOCYTES ABSOLUTE AUTO 1.65 K/mm3 (0.84-5.20); LYMPHOCYTES PERCENT AUTO 25 % (21-46); MONOCYTES ABSOLUTE AUTO 0.61 K/mm3 (0.16-1.47); MONOCYTES PERCENT AUTO 9 % (4-13); Mean Corpuscular HGB 29.6 pg (26.0-34.0); Mean Corpuscular HGB Conc 33.2 g/dL (31.5-36.5); Mean Corpuscular Volume 89 fL (80-100); Mean Platelet Volume 10.1 fL (9.1-12.4); NEUTROPHILS ABSOLUTE AUTO 4.27 K/mm3 (1.96-9.15); NEUTROPHILS PERCENT AUTO 64 % (41-73); Platelet Count 179 K/mm3 (150-400); RDW Coefficient Variation 12.6 % (11.7-14.2); RDW Standard Deviation 41.4 fL (35.1-46.3); Red Blood Cell Count 4.46 M/mm3 (3.80-5.20); White Blood Cell Count 6.71 K/mm3 (4.00-11.30)
[2023-02-20 13:24] LABS: Albumin, Blood 3.7 g/dL (3.4-5.0); Albumin/Globulin Ratio 0.9 (0.8-1.8); Bilirubin, Total 0.7 mg/dL (0.1-1.0); Bun/Creatinine Ratio 12.2 (12.0-20.0); Calcium, Blood 9.7 mg/dL (8.5-10.1); Creatinine, Blood 0.98 mg/dL (0.40-1.00); Globulin, Blood 3.9 g/dL (2.2-4.0); Potassium, Blood 3.9 mmol/L (3.5-5.5); Total Protein, Blood 7.6 g/dL (6.4-8.2)
[2023-02-20 16:04] VITALS: BP 139/60
[2023-02-20] MEDS ORDERED: FURO20 PO (16:05)
[2023-02-20] MEDS ORDERED: POTCHL20ER PO (16:06)
--- NOTE | 2023-02-20 17:02 | NUR ---
TELE CALLED AND STATED THAT PT'S HR DROPPED TO THE THIRTIES. PT WAS ASYMPTOMATIC. CALL TO DR GONZALEZ TO LET HER KNOW THAT TELE IS CALLING RHYTHM JUNCTIONAL AND AMRITA. DR GONZALEZ STATES SHE WILL DISCUSS WITH DR BECKFORD
--- NOTE | 2023-02-20 17:34 | NUR ---
DR GONZALEZ PLACED AN ATROPINE ORDER. CALL TO FAST BRIM POUNCER WHO SUGGESTED IF PT DROPS INTO 30S AGAIN, ATTEMPT TO GET A STATUS CHANGE. CURRENTLY PT IS IN THE 50S. ASYMPTOMATIC
--- NOTE | 2023-02-20 17:55 | NUR ---
TELE CALLED AND STATED PT'S HR WAS FREQUENTLY DROPPING INTO THE 30S. CALL TO DR BECKFORD TO RELAY THAT ATROPINE CANNOT BE ADMINISTERED ON MEDICAL FLOOR. ORDERS FOR PCU BED. BLOOD BANK BOOKING CLERK AWARE
[2023-02-20 18:28] VITALS: BP 143/62
--- NOTE | 2023-02-20 18:29 | NUR ---
PT TRANSFERRED TO PCU 4 VIA WHEEL CHAIR FOR BRADYCARDIA AND POSSIBLE NEED FOR ATROPINE. REPORT GIVEN TO LAMONT ARREOLA. NO FURTHER NEEDS OR CONCERNS AT THIS TIME.
--- NOTE | 2023-02-20 19:27 | NUR ---
shift summary/transfer note: Pt arrived to room PCU 4 via w/c from medical floor around 182. Pt HR shows bradycardia in a rate of 40-50 on tele. LS clear. BT positive. Pulses palp. BP stable. Pt denies pain or dizziness at this time. Pt oriented to room, call light, POC. Pt told not to get up without assistance d/t bradycardia. Call light in reach. Will report to night RN.
[2023-02-20 19:30] VITALS: BP 140/56
[2023-02-20 23:35] VITALS: BP 137/62
[2023-02-21 03:09] VITALS: BP 153/71
[2023-02-21 03:28] LABS: Hematocrit 37.9 % (33.0-51.0); Hemoglobin 12.6 g/dL (11.5-16.0); Mean Corpuscular HGB Conc 33.2 g/dL (31.5-36.5); Mean Corpuscular Volume 90 fL (80-100); Mean Platelet Volume 10.3 fL (9.1-12.4); Platelet Count 170 K/mm3 (150-400); RDW Standard Deviation 42.4 fL (35.1-46.3); White Blood Cell Count 6.39 K/mm3 (4.00-11.30)
[2023-02-21 03:44] LABS: Bun/Creatinine Ratio 17.8 (12.0-20.0); Calcium, Blood 9.1 mg/dL (8.5-10.1); Creatinine, Blood 1.07 mg/dL (0.40-1.00); Potassium, Blood 4.7 mmol/L (3.5-5.5)
--- NOTE | 2023-02-21 04:29 | NUR ---
SHIFT SUMMARY: PT ALERT AND ORIENTED X4, ABLE TO FOLLOW COMMANDS AND MAKE NEEDS KNOWN. FORGETFUL AT TIMES. BED ALARM ON FOR SAFETY. BP STABLE, AFEBRILE, SATS >98% ON ROOM AIR. HR REMAINS SB 30'S AT REST, 50'S WITH ACTIVITY. ASYMPTOMATIC. ATROPINE AT BEDSIDE. PT SBA TO AND FROM BATHROOM. NO BM. PT NPO AT 0000 FOR CARDIOOLOGY CONSULT. BED IN LOW, CALL LIGHT IN REACH, WILL REPORT TO ONCOMING RN.
[2023-02-21 09:00] VITALS: BP 154/55
[2023-02-21 10:49] LABS: Cholesterol 154 mg/dL (50-200); Triglycerides 174 mg/dL (30-160)
[2023-02-21 12:19] VITALS: BP 168/58
[2023-02-21 16:16] VITALS: BP 145/58
--- NOTE | 2023-02-21 16:51 | NUR ---
ADMIT NOTE PT ARRIVED TO U03 VIA GURNEY FROM ED. PT ABLE TO STAND AND TRANSFER FROM GURNEY TO BED WITH MINIMAL ASSISTANCE. PT ORIENTED TO ROOM, CALL LIGHT, UNIT ROUTINES. PT DENIES CHEST PAIN OR PRESSURE ON ARRIVAL. SEE DOCUMENTED VS AND ASSESSMENT. DR HUNTER IN TO SEE PT. PLANS TO TREND TROPONINS AND EKGs, PT ON HEPARIN GTT PER MD ORDERS. PT C/O BILATERAL LEG CRAMPS, DR SLOAN NOTIFIED AND ORDERS RECEIVED. BLE US NEGATIVE FOR DVTs, MAG WNL. PT GIVEN ONE TIME DOSE OF DILAUDID DURRING US DUE TO PAIN. PT IS A&OX4, ABLE TO USE CALL LIGHT FOR NEEDS. OOB W SBA TO BSC. WILL CONTINUE TO MONITOR.
--- NOTE | 2023-02-21 18:43 | NUR ---
ASSUMED CARE OF PT AT 0700. PT IS A&OX4, ABLE TO USE CALL LIGHT FOR NEEDS. DENIES CHEST PAIN OR PRESSURE THIS AM. DIZZINESS AT TIMES. DR HUNTER AT BEDSIDE TO SEE PT TODAY. PLAN WAS FOR PT TO GO HOME WITH ZIO PATCH UNTIL AT 1216 PT HAD A 4.5 SECOND PAUSE AND WENT INTO AN IDIOVENTRICULAR RHTHYM FOR A FEW MINUTES. PT WAS SYMPTOMATIC, STATED SHE FELT DIZZY AND "LIKE I WAS GOING TO PASS OUT." DR RAMÍREZ NOTIFIED AND HE CAME BACK TO RE-EVALUATE THE PT. PLAN IS NOW FOR PACEMAKER PLACEMENT TOMORROW AROUND 1030. PT AGREES TO PLAN. NPO AFTER MIDNIGHT. PT IS ABLE TO USE CALL LIGHT FOR NEEDS, CALL LIGHT IN REACH. WILL CONTINUE TO MONITOR AND GIVE REPORT TO NOC SHIFT RN.
[2023-02-21 19:37] VITALS: BP 139/57
[2023-02-21 23:10] VITALS: BP 132/53
[2023-02-22] VITALS (12 sets, daily range): BP systolic 94–150; BP diastolic 54–77
--- NOTE | 2023-02-22 04:43 | NUR ---
SHIFT SUMMARY: PT WITH NO ACUTE EVENTS OVERNIGHT. REMAINS ALERT AND ORIENTED X4, ABLE TO FOLLOW COMMANDS AND MAKE NEEDS KNOWN. BP STABLE, HR SB-SR 50-60'S, AFEBRILE, SATS >98% ON ROOM AIR. RESPIRATIONS EVEN AND UNLABORED. PULSES STRONG AND EQUAL THROUGHOUT. PT SBA TO AND FROM BATHROOM. DENIES CP/PRESSURE. PT NPO SINCE 0000 FOR PACEMAKER IN AM. BED IN LOW, CALL LIGHT IN REACH, WILL REPORT TO ONCOMING RN.
--- NOTE | 2023-02-22 09:53 | NUR ---
AM NOTE: PATIENT ALERT AND ORIENTED. VERY PLEASENT AND COOPERATIVE WITH CARES. UP SBA TO BATHROOM. DENIES NUMBNESS/TINGLING. PERRLA, WEARING GLASSES. ON ROOM AIR SATING ABOVE 95%. LUNGS SOUNDING CLEAR THROUGHOUT. DENIES COUGH/SOB. TELE SHOWING SB/SR WITH HR 50-70'S THIS AM. DENIES CHEST PAIN/PRESSURE/PALPITATIONS. BP STABLE. NO EDEMA NOTED. IV SALINE LOCKED. PLAN FOR PACER THIS AFTERNOON. PATIENT NPO EXPECT MORNING MEDS. DENIES ABDOMINAL PAIN/NAUSEA. VOIDING WNL. BOWEL TONES PRESENT. SKIN OVERALL C/D/I. CALL LIGHT IN REACH. BED ALARM IN PLACE. DR. TROTTER ROUND THIS AM AND SPOKE WITH PATIENT DAUGHTER ON PHONE.
--- NOTE | 2023-02-22 10:11 | NUR ---
PATIENT TO HEART CENTER AT THIS TIME.
--- NOTE | 2023-02-22 12:50 | NUR ---
PATIENT RETURNS FROM SELF PAY SPECIALIST, PACER PLACEMENT TO UPPER LEFT CHEST WALL. DRESSING C/D/I. NO SWELLING OR HEMATOMA NOTED SURROUNDING DRESSING. PATIENT PLACED IN SLING AND ICE PACK OVER SITE. POST VITALS STABLE AND IN PROGRESS. PACER EDUCATION REVIEWED WITH PATIENT. PATIENT ABLE TO VERABLIZE EDUCATION. PACER WRITTEN EDUCATION ALSO PROVIDED. BED ALARM IN PLACE. PATIENT DENIES PAIN AT THIS TIME. EATING LUNCH WITH RIGHT HAND/ARM.
--- NOTE | 2023-02-22 18:45 | NUR ---
SHIFT SUMMARY: NO ACUTE CHANGES. LEFT CHEST PACER SITE WNL. DRESSING C/D/I. VERY MINIMAL BRUISING BELOW DRESSING. PATIENT COMPLAINS OF SORENESS, MEDICATED WITH TYLENOL WITH GOOD RELIEF. ICE PACK AND SLING REMAIN PLACE. PATIENT EDUCATED MULTIPLE TIMES ON POST PACER PRECAUTIONS. PATIENT READING OVER EDUCATION WELL. EATING AND VOIDING WNL. UP SBA TO HELP MAINTAIN SHOULDER PRECAUTIONS. IV ABX INFUSING AT THIS TIME. BED ALARM ON FOR SAFETY. CALL PLACED TO DAUGHTER TO UPDATE, NO ANSWER. CALL LIGHT IN REACH.
--- NOTE | 2023-02-22 19:38 | NUR ---
ASSUMPTION OF CARE: PATIENT IS ALERT AND ORIENTED X4 LAYING IN BED WITH SLING, COMFORTABL, NO UNSTEADY GAI. TELE IN PLACE, DENIES CHEST PAIN/PRESSURE, OR SOB. ANCEF HAD FINSISHED INFUSING, 0200 ANCEF PENDING. NO INSULIN COVERAGE NEEDED. PATIENT WITH NO CONCERNS DENIES PAIN, TREATED EARLIER WITH PO TYLENOL. VSS, COTNINENT OF BOWEL AND URINE. SWALLOWS PILLS APPROPRIATELY WITH THIN LIQUIDS. NO CONCERNS FROM THIS RN OR PREVIOUS RN, AND PATIENT, WILL CONTINUE TO MONITOR UNTIL SHIFT CHANGE.
[2023-02-23 04:18] LABS: BASOPHILS ABSOLUTE AUTO 0.02 K/mm3 (0.00-0.23); BASOPHILS PERCENT AUTO 0 % (0-2); EOSINOPHILS ABSOLUTE AUTO 0.07 K/mm3 (0.00-0.68); EOSINOPHILS PERCENT AUTO 2 % (0-6); Hematocrit 36.1 % (33.0-51.0); Hemoglobin 12.1 g/dL (11.5-16.0); IMMATURE GRAN ABSOLUTE AUTO 0.01 K/mm3 (0.00-0.10); IMMATURE GRAN PERCENT AUTO 0 % (0-1); LYMPHOCYTES ABSOLUTE AUTO 1.11 K/mm3 (0.84-5.20); LYMPHOCYTES PERCENT AUTO 24 % (21-46); MONOCYTES ABSOLUTE AUTO 0.38 K/mm3 (0.16-1.47); MONOCYTES PERCENT AUTO 8 % (4-13); Mean Corpuscular HGB 29.8 pg (26.0-34.0); Mean Corpuscular HGB Conc 33.5 g/dL (31.5-36.5); Mean Corpuscular Volume 89 fL (80-100); Mean Platelet Volume 10.3 fL (9.1-12.4); NEUTROPHILS PERCENT AUTO 66 % (41-73); Platelet Count 125 K/mm3 (150-400); RDW Coefficient Variation 12.8 % (11.7-14.2); RDW Standard Deviation 41.4 fL (35.1-46.3); Red Blood Cell Count 4.06 M/mm3 (3.80-5.20); White Blood Cell Count 4.69 K/mm3 (4.00-11.30)
[2023-02-23 04:33] LABS: Bun/Creatinine Ratio 15.3 (12.0-20.0); Calcium, Blood 8.5 mg/dL (8.5-10.1); Creatinine, Blood 0.85 mg/dL (0.40-1.00); Potassium, Blood 3.5 mmol/L (3.5-5.5)
[2023-02-23 07:45] VITALS: BP 142/73
--- NOTE | 2023-02-23 09:51 | NUR ---
AM NOTE: PATIENT ALERT AND ORIENTED X4. UP SBA TO BATHROOM TO REMIND PATIENT TO MAINTAIN SHOULDER PRECAUTIONS. TELE SHOWING JUNCTIONAL SR. WITH HR 70'S. BP STABLE. LEFT CHEST WALL PACER SITE WNL WITH VERY MINIMAL BRUISING. DRESSING C/D/I. PACER INTERROGATION COMPLETED. DR. PARKS BY THIS AM TO ASSESS, SEE NOTE. ON ROOM AIR SATING ABOVE 95%. LUNGS SOUNDING CLEAR. EATING AND VOIDING WNL. ARM KEPT IN SLING, GIVEN TYLENOL PO THIS AM FOR MINIMAL SORNESS. PLAN FOR DISCHARGE TODAY, DAUGHTER FLYING IN FROM OUT OF TOWN TO PHYSIOTHERAPY ASSISTANT PATIENT LATER AFTERNOON.
[2023-02-23 11:34] VITALS: BP 117/59
[2023-02-23] MEDS ORDERED: PROP60 PO (12:56)
[2023-02-23] MEDS ORDERED: ACET325 PO (12:56)
[2023-02-23] MEDS ORDERED: CEPH500 PO (12:57)
--- NOTE | 2023-02-23 13:38 | NUR ---
DISCHARGE: PATIENT DAUGHTER AT BEDSIDE FOR PICKUP. PATIENT AND DAUGHTER ABLE TO TEACH BACK ALL DISCHARGE INSTRUCTIONS. THIS RN REVIEWED NEW MEDICATIONS, FAXED TO [facility] FOR PATIENT TO MACHINE INSTALLER INCLUDING ABX. THIS RN ALSO DISCUSSED DR. RYAN SPECIFIC PACER INSTRUCTIONS AND SHOULDER PRECAUTIONS. PACER MANUAL AND TEMPORARY CARD SENT HOME. THIS RN DISCUSSED WOUND CARE AND PACER CLINIC APPOINTMENT WELL PATIENT NEEDING TO SCHEDULE PCP APPOINTMENT. PATIENT LEFT UNIT WITH ALL PERSONAL BELONGINGS.
--- NOTE | 2023-02-23 22:16 | NUR ---
RECEIVED PHONE CALL FROM DR. RYAN THIS EVENING REQUESTING PT BE CALLED CLARIFYING XARELTO TO BE HELD UNTIL 02/26 SPOKE WITH DAUGHTER AND PT VIA PHONE, PT CONFIRMED SHE HAD RECEIVED EDUCATION FROM BEDSIDE NURSE BEFORE DISCHARGE AND HAD NOT TAKEN XARELTO. WILL RESUME PER DR. RYAN ON 02/26
== END 2023-02-23 14:00 | disposition home or self-care (01) | DRG 244 ==
LOC: ER 12:15 → MEDS 12:16 → PCU 12:16 → MEDS 15:55 → PCU 18:27
PROVIDERS: Emergency Medicine; Family Medicine; Student in an Organized Health Care Education/Training Program; ADMIT Internal Medicine
PROC: 0JH606Z Insertion of Pacemaker, Dual Chamber into Chest Subcutaneous Tissue and Fascia, Open Approach (ICD-10-PCS; principal; 2023-02-20)
PROC: 02H63JZ Insertion of Pacemaker Lead into Right Atrium, Percutaneous Approach (ICD-10-PCS; 2023-02-20)
PROC: 02HK3JZ Insertion of Pacemaker Lead into Right Ventricle, Percutaneous Approach (ICD-10-PCS; 2023-02-20)
DX: R00.1 Bradycardia, unspecified (principal); I48.0 Paroxysmal atrial fibrillation; E11.9 Type 2 diabetes mellitus without complications; R55 Syncope and collapse; I10 Essential (primary) hypertension; Z95.5 Presence of coronary angioplasty implant and graft; Z88.8 Allergy status to other drugs, medicaments and biological substances; Z79.84 Long term (current) use of oral hypoglycemic drugs; Z79.899 Other long term (current) drug therapy; Z79.01 Long term (current) use of anticoagulants; Z98.51 Tubal ligation status; Z98.890 Other specified postprocedural states
CPT/HCPCS: 33208; 36415; 71045; 71046; 76937; 80048; 80053; 82465; 82947; 83036; 83690; 84443; 84478; 84484; 85025; 85027; 93005; 93010; 99152; 99153; 99285-25; A9270; C1781; C1785; C1894; C1898; G0378; J0690; J1644; J2250; J3010; J7030; J7040

== ENCOUNTER → 2024-02-17 | Outpatient (CLI) | payer OTHER ==
[~2024-02-17] MED LIST changes: +ACET325 PO; +CEPH500 PO; +FURO20 PO; +POTCHL20ER PO; +PROP60 PO
[2024-02-18 12:37] LABS: Stool Occult Bld Immuno 1 Negative (NEGATIVE)
== END | disposition home or self-care (01) ==
LOC: LAB SHORT 14:38 → LAB 14:38
PROVIDERS: Family Medicine
DX: Z12.11 Encounter for screening for malignant neoplasm of colon (principal)
CPT/HCPCS: G0328

== ENCOUNTER 2024-03-30 09:43 | Emergency (ER) | payer OTHER ==
[~2024-03-30] VITALS: Ht 142.2 cm; Wt 64.4 kg
[2024-03-30 10:29] VITALS: BP 139/85
[2024-03-30 11:35] LABS: BASOPHILS ABSOLUTE AUTO 0.05 K/mm3 (0.00-0.23); BASOPHILS PERCENT AUTO 1 % (0-2); EOSINOPHILS ABSOLUTE AUTO 0.11 K/mm3 (0.00-0.68); EOSINOPHILS PERCENT AUTO 2 % (0-6); Hematocrit 39.2 % (33.0-51.0); Hemoglobin 13.8 g/dL (11.5-16.0); IMMATURE GRAN ABSOLUTE AUTO 0.01 K/mm3 (0.00-0.10); IMMATURE GRAN PERCENT AUTO 0 % (0-1); LYMPHOCYTES ABSOLUTE AUTO 1.37 K/mm3 (0.84-5.20); LYMPHOCYTES PERCENT AUTO 23 % (21-46); MONOCYTES ABSOLUTE AUTO 0.42 K/mm3 (0.16-1.47); MONOCYTES PERCENT AUTO 7 % (4-13); Mean Corpuscular HGB 30.7 pg (26.0-34.0); Mean Corpuscular HGB Conc 35.2 g/dL (31.5-36.5); Mean Corpuscular Volume 87 fL (80-100); Mean Platelet Volume 10.5 fL (9.1-12.4); NEUTROPHILS ABSOLUTE AUTO 3.99 K/mm3 (1.96-9.15); NEUTROPHILS PERCENT AUTO 67 % (41-73); Platelet Count 184 K/mm3 (150-400); RDW Coefficient Variation 12.7 % (11.7-14.2); RDW Standard Deviation 39.9 fL (35.1-46.3); White Blood Cell Count 5.95 K/mm3 (4.00-11.30)
[2024-03-30 12:11] LABS: Albumin, Blood 3.5 g/dL (3.4-5.0); Albumin/Globulin Ratio 0.8 (0.8-1.8); Bilirubin, Total 0.9 mg/dL (0.1-1.0); Bun/Creatinine Ratio 12.2 (12.0-20.0); Calcium, Blood 9.9 mg/dL (8.5-10.1); Creatinine, Blood 0.9 mg/dL (0.40-1.00); Globulin, Blood 4.5 g/dL (2.2-4.0); Potassium, Blood 3.9 mmol/L (3.5-5.5)
== END 2024-03-30 12:39 | disposition home or self-care (01) ==
LOC: ER 09:43
PROVIDERS: Physician Assistant
DX: K06.8 Other specified disorders of gingiva and edentulous alveolar ridge (principal); I48.91 Unspecified atrial fibrillation; E11.9 Type 2 diabetes mellitus without complications; I10 Essential (primary) hypertension; Z95.0 Presence of cardiac pacemaker; Z88.8 Allergy status to other drugs, medicaments and biological substances; Z79.84 Long term (current) use of oral hypoglycemic drugs; Z79.01 Long term (current) use of anticoagulants; Z79.899 Other long term (current) drug therapy
CPT/HCPCS: 80053; 85025; 99282